=== PATIENT | female | born 1950 | race African-American/Black ===

== ENCOUNTER → 2019-05-04 | Day surgery (SDC) | payer MEDICARE ==
[2019-04-24 10:29] LABS: BASOPHILS % 0.7 % (0.0-1.0); EOSINOPHILS # (AUTO) 0.1 (0.0-0.4); EOSINOPHILS % 2.2 % (0.0-6.0); HEMATOCRIT 36.5 % (34.2-44.1); HEMOGLOBIN 11.6 g/dL (12.0-16.0); LYMPHOCYTES # (AUTO) 2.1 (1.0-3.2); LYMPHOCYTES % 37.1 % (18.0-39.1); MEAN CORPUSCULAR HEMOGLOBIN 26.1 pg (28-32); MEAN CORPUSCULAR HGB CONC 31.8 g/dL (31-35); MEAN CORPUSCULAR VOLUME 82.2 fL (81-99); MONOCYTES # (AUTO) 0.4 (0.2-0.8); MONOCYTES % 6.5 % (4.4-11.3); NEUTROPHILS % 53.3 % (38.7-80.0); PLATELET COUNT 277 x10e3/uL (140-360); RED BLOOD COUNT 4.44 x10e6/uL (3.6-5.1); RED CELL DISTRIBUTION WIDTH 15.2 % (11.7-14.4)
[~2019-05-04] MED LIST: BENICAR40 MG PO; CALCIUM + VITA1 EACH PO; CRESTOR10 MG PO; FENTANYL CITRATE/PF 100MCG/2 ML INJ ONE; FISH OIL PO; GLIMEPIRIDE PO; GLUCOPHAGE1000 MG PO; GLUCOPHAGE500 MG PO; GLYBURIDE5 MG PO; HYOSCYAMINE 0.125 MG TAB ONE; IBUPROFEN PO; MIDAZOLAM HCL 2 MG/2 ML VIAL ONE; MULTIVITAMINS1 EAC7 PO; NORVASC10 MG PO; OMEGA 3 1,0001 EACH PO; PHENYLEPHRINE HCL 1% 10 MG/ML VIAL ONE; PROPOFOL IV EMULSION 10 MG/ML 50 ML VIAL ONE; TRAVATAN Z5 ML OP; VICTOZA 2-0.6 MG/0.1 INJ; VITAMIN C PO
--- OUTSIDE RECORDS SUMMARY | 2019-05-04 08:22 | XMS REPORT ---
Author Author [facility] Address Unknown Phone Unavailable Care Team Providers Care Lamina Searcher Name Role Phone Chandler KANG Unavailable Unavailable Payers Payer Name Policy Type Policy Number Effective Date Expiration Date Problems This patient has no known problems. Allergies, Adverse Reactions, Alerts This patient has no known allergies or adverse reactions. Medications This patient has no known medications. Results Test Description Test Time Test Comments Text Results Atomic Results Result Comments - US TRANSVAGINAL NON OB 2019-02-28 08:01:00 Name: KAMLESH CLARKE [facility] : 1950 Age/S: 68 / F [address] [facility] Unit #: [id number] Loc: [place] [address] Phys: Alpesh Willoughby MD Acct: [id number] Dis Date: Status: REG CLI PHONE #: [phone] Exam Date: 02/28/2019 0750 FAX #: [phone] Reason: EXAMS: CPT CODE: [id number] [place] [address] HISTORY: ENLARGED UTERUS TECHNIQUE: Static grayscale and color Doppler images from real-time transabdominal sonographic evaluation of the pelvis. Images from endovaginal probe were also acquired for better visualization of endometrial canal and adnexal structures. COMPARISON: None FINDINGS: Uterus measures 8.8 x 5.2 x 5.8 cm (length x AP x transverse dimensions). Calcified intramural fibroids measuring 4.3 cm, 4.9 cm, and 4.7 cm. Nonc alcified 3.0 cm fibroid of the anterior uterine fundus. Endometrial stripe is normal thickness at 1.4 cm. Bilateral ovaries are obscured. No adnexal mass. No pelvic free fluid. IMPRESSION: Multiple uterine fibroids measuring up to 4.9 cm. Bilateral ovaries are obscured. at 0801 Reported and signed by: Yaritza Harry D.O. CC: Viraj Rand DO; Alpesh Willoughby Technologist: SELVIN DIXON RT(R),RDMS Trninb Date/Time: 02/28/2019 (800) [email or web address] Orig Print D/T: S: 02/28/2019 (803) Probe: [id number] PAGE 1 Signed Report - US PELVIS COMPLETE 2019-02-28 08:01:00 Name: KAMLESH CLARKE [facility] : 1950 Age/S: 68 / F [address] [facility] Unit #: [id number] Loc: [place] [address] Phys: Alpesh Willoughby MD Acct: [id number] Dis Date: Status: REG CLI PHONE #: [phone] Exam Date: 02/28/2019 0750 FAX #: [phone] Reason: ENLARGED UTERUS EXAMS: CPT CODE: [id number] US PELVIS COMPLETE 51569 HISTORY: ENLARGED UTERUS TECHNIQUE: Static grayscale and color Doppler images from real-time transabdominal sonographic evaluation of the pelvis. Images from endovaginal probe were also acquired for better visualization of endometrial canal and adnexal structures. COMPARISON: None FINDINGS: Uterus measures 8.8 x 5.2 x 5.8 cm (length x AP x transverse dimensions). Calcified intramural fibroids measuring 4.3 cm, 4.9 cm, and 4.7 cm. Nonc alcified 3.0 cm fibroid of the anterior uterine fundus. Endometrial stripe is normal thickness at 1.4 cm. Bilateral ovaries are obscured. No adnexal mass. No pelvic free fluid. IMPRESSION: Multiple uterine fibroids measuring up to 4.9 cm. Bilateral ovaries are obscured. at 0801 Reported and signed by: Yaritza Harry D.O. CC: Viraj Rand DO; Alpesh Willoughby Technologist: SELVIN DIXON RT(R),ADEOLA Trninb Date/Time: 02/28/2019 (800) [email or web address] Orig Print D/T: S: 02/28/2019 (0804) Probe: PAGE 1 Signed Report CHEST SINGLE (PORTABLE) [place] [address] Patient Name: KAMLESH CLARKE MR #: [id number] : 1950 Age/Sex: 67/F Req #: [id number] Adm Physician: Ordered by: CHICHI KANG MD Report #: [id number] Location: ER Room/Bed: Procedure: [id number] DX/CHEST SINGLE (PORTABLE) Exam Date: 07/05/17 Exam Time: 1605 REPORT STATUS: Signed PROCEDURE: A single AP view of the chest. COMPARISON: [facility], DX, CHEST SINGLE (PORTABLE), 04/03/2016, 17:03. INDICATIONS: CHEST PAIN FINDINGS: Lines/tubes: None. Lungs: The lungs are well inflated and clear. There is no evidence of pneumonia or pulmonary edema. Pleura: There is no pleural effusion or pneumothorax. Heart and mediastinum: The heart and the mediastinum are unremarkable. Bones: No acute bony abnormality. IMPRESSION: 1. No acute cardiopulmonary disease. Tristan Silva M.D. Dictated by: Tristan Silva M.D. on 07/05/2017 at 16:37 Electronically approved by: Tristan Silva M.D. on 07/05/2017 at 16:37 Dictated By: YANICK SILVA MD, MD [id number] Transcribed By: JACY on 07/05/17 1637 COPY TO: CHICHI KANG MD
[2019-05-04 11:26] VITALS: BP 111/64
--- NOTE | 2019-05-04 13:00 | Operative Report ---
DATE OF PROCEDURE: 05/04/2019 SURGEON: Ze Hernandez MD PROCEDURE: Colonoscopy with polypectomy. INDICATIONS FOR COLONOSCOPY: Surveillance colonoscopy, personal history of colon polyps. MEDICATIONS: The patient was done under MAC, please see anesthesiologist's note. PROCEDURE IN DETAIL: With the patient in left lateral decubitus position, a flexible fiberoptic Olympus colonoscope was inserted into the rectum with ease and advanced all the way to the cecum. Prep overall was suboptimal, but visualization was fair. The scope was then withdrawn slowly. Mucosa overlying the cecum, ascending colon, transverse colon, and descending colon grossly appeared to be within normal limits. Three polyps were hot biopsied from the sigmoid. One polyp was hot biopsied from the rectum. The scope was then retroflexed into the distal rectum and small internal hemorrhoids were noted, none of which was actively bleeding. The scope was then straightened out, it was subsequently withdrawn, and the patient tolerated the procedure well. IMPRESSION: 1. Suboptimal prep. 2. Sigmoid colon polyps x3, hot biopsied. 3. Rectal polyp x1, hot biopsied. 4. Internal hemorrhoids, none actively bleeding. PLAN: Follow up histology. Initiate high-fiber, low-fat diet. Initiate high-fiber supplement. The patient might benefit from a followup colonoscopy in 3 years. Ze Hernandez MD [facility] [place] /[id number] cc: Viraj Rand DO
== END | disposition home or self-care (01) ==
LOC: OR 08:10
PROVIDERS: ATTEND Internal Medicine Gastroenterology
DX: Z09 Encounter for follow-up examination after completed treatment for conditions other than malignant neoplasm (principal); K63.5 Polyp of colon; K62.1 Rectal polyp; K64.8 Other hemorrhoids; K21.9 Gastro-esophageal reflux disease without esophagitis; E11.9 Type 2 diabetes mellitus without complications; I10 Essential (primary) hypertension; E78.5 Hyperlipidemia, unspecified; Z88.0 Allergy status to penicillin; Z88.8 Allergy status to other drugs, medicaments and biological substances; Z01.812 Encounter for preprocedural laboratory examination; Z79.84 Long term (current) use of oral hypoglycemic drugs; Z68.33 Body mass index [BMI] 33.0-33.9, adult; Z80.0 Family history of malignant neoplasm of digestive organs
CPT/HCPCS: 36415 ×2; 45384; 82948; 85025; 88305; 93005; J2250; J2370; J2704; J3010; 45378

== ENCOUNTER → 2022-09-21 | Day surgery (SDC) | payer BC, MEDICARE ==
[2022-09-17 11:00] LABS: BASOPHILS % 0.7 % (0.0-1.0); EOSINOPHILS # (AUTO) 0.2 (0.0-0.4); EOSINOPHILS % 2.8 % (0.0-6.0); HEMOGLOBIN 11.8 g/dL (12.0-16.0); LYMPHOCYTES # (AUTO) 2.6 (1.0-3.2); LYMPHOCYTES % 42.2 % (18.0-39.1); MEAN CORPUSCULAR HEMOGLOBIN 26.4 pg (28-32); MEAN CORPUSCULAR HGB CONC 29.5 g/dL (31-35); MEAN CORPUSCULAR VOLUME 89.5 fL (81-99); MONOCYTES # (AUTO) 0.4 (0.2-0.8); MONOCYTES % 6.4 % (4.4-11.3); NEUTROPHILS # (AUTO) 2.9 (2.1-6.9); NEUTROPHILS % 47.6 % (38.7-80.0); PLATELET COUNT 275 x10e3/uL (140-360); RED BLOOD COUNT 4.47 x10e6/uL (3.6-5.1); RED CELL DISTRIBUTION WIDTH 14.5 % (11.7-14.4)
[~2022-09-21] MED LIST changes: +AMLODIPINE BESY10 MG PO; +ATENOLOL50 MG PO; -FENTANYL CITRATE/PF 100MCG/2 ML INJ ONE; -HYOSCYAMINE 0.125 MG TAB ONE; +LIDOCAINE HCL 2% LOCAL INJ 5 ML SDV VIAL INJ ONE; +METOCLOPRAMIDE HCL 10 MG/2ML VIAL ONE; -PHENYLEPHRINE HCL 1% 10 MG/ML VIAL ONE; +PROPOFOL IV EMULSION 10 MG/ML 20 ML VIAL ONE; -PROPOFOL IV EMULSION 10 MG/ML 50 ML VIAL ONE
[2022-09-21 13:35] VITALS: BP 116/71
== END | disposition home or self-care (01) ==
LOC: OR 11:50
PROVIDERS: ATTEND Internal Medicine Gastroenterology
DX: Z09 Encounter for follow-up examination after completed treatment for conditions other than malignant neoplasm (principal); Z86.010 Personal history of colon polyps; K57.30 Diverticulosis of large intestine without perforation or abscess without bleeding; K64.8 Other hemorrhoids; Z71.3 Dietary counseling and surveillance; E11.9 Type 2 diabetes mellitus without complications; I10 Essential (primary) hypertension; E78.00 Pure hypercholesterolemia, unspecified; Z88.0 Allergy status to penicillin; Z88.8 Allergy status to other drugs, medicaments and biological substances; Z01.810 Encounter for preprocedural cardiovascular examination; Z01.812 Encounter for preprocedural laboratory examination; Z79.84 Long term (current) use of oral hypoglycemic drugs; Z79.899 Other long term (current) drug therapy; Z68.33 Body mass index [BMI] 33.0-33.9, adult; Z80.0 Family history of malignant neoplasm of digestive organs
CPT/HCPCS: 36415 ×2; 45378; 82948; 85025; 93005; J2001; J2250; J2704; J2765